=== PATIENT | male | born 1970 | race American Indian/Alaskan Native ===

== ENCOUNTER 2016-10-21 12:21 | Inpatient (IN) | payer OTHER ==
--- NOTE | 2016-10-21 13:00 | Emergency Department Report ---
Chief Complaint: Hyperglycemia Stated Complaint: JOHN/NAUSEA - HPI History of Present Illness: Patient with HTN, DM2 c/o trouble breathing, increased thirst, frequent urination. States ran out of diabetes meds (Long-acting insulin and metformin couple of weeks ago, fast-acting insulin yesterday). States home BG in the 500s. Patient also c/o twisting his left knee last night. States knee hurts with the slightest movement/transfer of pressure. - Exam Vital Signs: Vital Signs 10/21/16 12:37 Temperature 98.1 F Pulse Rate 95 H Respiratory 24 Rate Blood Pressure 114/72 O2 Sat by Pulse 95 Oximetry Physical Exam: General: Uncomfortable-appearing. NAD. MSE screening note: Focused history and physical exam performed. Due to findings the following was ordered: ED Medical Decision Making - Medical Decision Making Patient to see MD in main ED. ED Disposition for MSE Condition: Stable
[2016-10-21 13:38] LABS: Basophils % (Auto) 0.8 % (0.0-1.8); Eosinophils % (Auto) 0.1 % (0.0-4.3); Hematocrit 49.8 % (35.5-45.6); Hemoglobin 15.9 gm/dl (11.8-15.2); Mean Corpuscular HGB Conc 32 % (32-34); Mean Corpuscular Hemoglobin 28 pg (28-32); Mean Corpuscular Volume 86 fl (84-94); Platelet Count 198 K/mm3 (140-440); Red Blood Count 5.78 M/mm3 (3.65-5.03); Red Cell Distribution Width 14.4 % (13.2-15.2); White Blood Count 12.2 K/mm3 (4.5-11.0)
[2016-10-21 13:52] LABS: Anion Gap 37 mmol/L; BUN/Creatinine Ratio 10.76; Blood Urea Nitrogen 14 mg/dL (9-20); Calcium 9.2 mg/dL (8.4-10.2); Carbon Dioxide 11 mmol/L (22-30); Chloride 88.1 mmol/L (98-107); Potassium 5.2 mmol/L (3.6-5.0); Sodium 131 mmol/L (137-145)
[2016-10-21 13:56] LABS: Glucose 557 mg/dL (75-100)
[2016-10-21] MEDS ORDERED: D50W (25GM) IV PRN ×2 (14:01→20:21)
[2016-10-21] MEDS ORDERED: TORADOL IV ONE (14:01)
[2016-10-21] MEDS ORDERED: NACL 0.9% 1000 ML 1,000 ML IV ONE ×2 (14:01)
[2016-10-21] MEDS ORDERED: ZOFRAN IV ONE (14:01)
--- NOTE | 2016-10-21 14:07 | Emergency Department Report ---
- General Chief complaint: Hyperglycemia Stated complaint: JOHN/NAUSEA Time Seen by Provider: 10/21/16 13:53 Source: patient, old records reviewed (no pevious [facility] record) Mode of arrival: Ambulatory Limitations: No Limitations - History of Present Illness Initial comments: 46-year-old male with a past medical history of diabetes presents to the hospital with hyperglycemia and left knee pain. Patient states he ran out of his long-acting insulin and metformin several weeks ago and ran out of the short acting insulin yesterday. His sugar has been in the 400 to 500s for several weeks. He complains of shortness of breath, nausea, dry mouth, increased thirst, increased urination. Last night patient twisted his knee. Patient states pain is worse this a.m. and at the proximal tibia bilaterally and lower knee joint. Pain rated 8/10 in intensity, aching, worse with palpation and movement. Patient denies dysuria, fever, cough, or other infectious symptoms. - Related Data Allergies Allergy/AdvReac Type Severity Reaction Status Date / Time No Known Allergies Allergy Unverified 10/21/16 12:37 ED Review of Systems ROS: Stated complaint: JOHN/NAUSEA Other details as noted in HPI Comment: All other systems reviewed and negative Other: Constitutional: No fevers chills Eyes: No eye pain visual changes ENT: No ear pain or throat pain Neck: Denies pain Respiratory: Denies cough wheezing Cardiovascular: Denies chest pain, palpitations, syncope GI: Denies abdominal pain, vomiting, diarrhea. Positive nausea : As per HPI Musculoskeletal: Per HPI Skin: Denies rash, lesions, erythema Neurologic: Denies headache, numbness, weakness Psychiatric: Denies suicidal ideation, hallucinations ED Physical Exam - General Limitations: No Limitations - Other Other exam information: General: No limitations, patient is alert in no acute distress Head exam: Atraumatic, normocephalic Eyes exam: Normal appearance, pupils equal reactive to light, extraocular movements intact ENT: Dry mucous membrane, normal oropharynx Neck exam: Normal inspection, full range of motion, no meningismus nontender Respiratory exam: Clear to auscultation bilateral, no wheezes, rales, crackles Cardiovascular: Normal rate and rhythm, normal heart sounds Abdomen: Soft, nondistended, and nontender, with normal bowel sounds, no rebound, or guarding Extremity: Full range of motion normal inspection no deformity, mild tenderness to lower knee area without swelling, warmth, or erythema Back: Normal Inspection, full range of motion, no tenderness Neurologic: Alert, oriented x3, cranial nerves intact, no motor or sensory deficit Psychiatric: normal affect, normal mood Skin: Warm, dry, intact ED Course Vital Signs 10/21/16 10/21/16 12:37 14:11 Temperature 98.1 F Pulse Rate 95 H 89 Respiratory 24 19 Rate Blood Pressure 114/72 Blood Pressure 128/71 [Right] O2 Sat by Pulse 95 99 Oximetry - Reevaluation(s) Reevaluation #1: 10/21/16 14:06 Toradol, regular insulin bolus, normal saline and insulin drip ordered as well as DKA protocol ED Medical Decision Making - Lab Data Result diagrams: 10/21/16 13:12 10/21/16 13:12 Lab Results 10/21/16 10/21/16 10/21/16 Range/Units 12:41 13:12 13:12 WBC (4.5-11.0) K/mm3 RBC (3.65-5.03) M/mm3 Hgb (11.8-15.2) gm/dl Hct (35.5-45.6) % MCV (84-94) fl MCH (28-32) pg MCHC (32-34) % RDW (13.2-15.2) % Plt Count (140-440) K/mm3 Lymph % (Auto) (13.4-35.0) % [place] % (Auto) (0.0-7.3) % Eos % (Auto) (0.0-4.3) % Baso % (Auto) (0.0-1.8) % Lymph # (1.2-5.4) K/mm3 [place] # (0.0-0.8) K/mm3 Eos # (0.0-0.4) K/mm3 Baso # (0.0-0.1) K/mm3 Seg Neutrophils % (40.0-70.0) % Seg Neutrophils # (1.8-7.7) K/mm3 VBG pH 7.198 L* (7.320-7.420) Sodium 131 L (137-145) mmol/L Potassium 5.2 H (3.6-5.0) mmol/L Chloride 88.1 L (98-107) mmol/L Carbon Dioxide 11 L (22-30) mmol/L Anion Gap 37 mmol/L BUN 14 (9-20) mg/dL Creatinine 1.3 (0.8-1.5) mg/dL Estimated GFR 60 ml/min BUN/Creatinine Ratio 10.76 % Glucose 557 H* (75-100) mg/dL POC Glucose 477 H (70-105) Calcium 9.2 (8.4-10.2) mg/dL Phosphorus (2.5-4.5) mg/dL Magnesium (1.7-2.3) mg/dL Troponin T < 0.010 (0.00-0.029) ng/mL Ketones 78.3 H (0.2-2.8) mg/dL 10/21/16 10/21/16 Range/Units 13:12 13:12 WBC 12.2 H (4.5-11.0) K/mm3 RBC 5.78 H (3.65-5.03) M/mm3 Hgb 15.9 H (11.8-15.2) gm/dl Hct 49.8 H (35.5-45.6) % MCV 86 (84-94) fl MCH 28 (28-32) pg MCHC 32 (32-34) % RDW 14.4 (13.2-15.2) % Plt Count 198 (140-440) K/mm3 Lymph % (Auto) 11.2 L (13.4-35.0) % [place] % (Auto) 5.5 (0.0-7.3) % Eos % (Auto) 0.1 (0.0-4.3) % Baso % (Auto) 0.8 (0.0-1.8) % Lymph # 1.4 (1.2-5.4) K/mm3 Pine # 0.7 (0.0-0.8) K/mm3 Eos # 0.0 (0.0-0.4) K/mm3 Baso # 0.1 (0.0-0.1) K/mm3 Seg Neutrophils % 82.4 H (40.0-70.0) % Seg Neutrophils # 10.0 H (1.8-7.7) K/mm3 VBG pH (7.320-7.420) Sodium (137-145) mmol/L Potassium (3.6-5.0) mmol/L Chloride (98-107) mmol/L Carbon Dioxide (22-30) mmol/L Anion Gap mmol/L BUN (9-20) mg/dL Creatinine (0.8-1.5) mg/dL Estimated GFR ml/min BUN/Creatinine Ratio % Glucose (75-100) mg/dL POC Glucose (70-105) Calcium (8.4-10.2) mg/dL Phosphorus 4.3 (2.5-4.5) mg/dL Magnesium 2.0 (1.7-2.3) mg/dL Troponin T (0.00-0.029) ng/mL Ketones (0.2-2.8) mg/dL - EKG Data -: EKG Interpreted by Me (nsr rate 87 no stemi) - EKG Data When compared to previous EKG there are: previous EKG unavailable - Radiology Data Radiology results: image reviewed (left knee x-ray: No acute findings chest x- ray: No acute findings) - Medical Decision Making Patient be admitted to the hospital for DKA, insulin therapy, and hydration - Differential Diagnosis DKA, hyperglycemia, fracture, sprain Critical Care Time: No Critical care attestation.: If time is entered above; I have spent that time in minutes in the direct care of this critically ill patient, excluding procedure time. ED Disposition Clinical Impression: DKA (diabetic ketoacidoses) Qualifiers: Diabetes mellitus type: type 2 Diabetes mellitus complication detail: without coma Qualified Code(s): E13.10 - Other specified diabetes mellitus with ketoacidosis without coma Disposition: OP ADMITTED IP TO THIS HOSP Is pt being admited?: Yes Condition: Stable Time of Disposition: 14:08 (dr Jones/hosp)
--- NOTE | 2016-10-21 14:08 | XRay Report ---
LEFT KNEE, 3 views: History: Left knee pain. The bony architecture is intact without evidence of fracture or dislocation. No significant soft tissue abnormality is seen. IMPRESSION: Normal left knee.
--- NOTE | 2016-10-21 14:08 | XRay Report ---
CHEST 2 VIEWS INDICATION: Shortness of breath. COMPARISON: None similar. FINDINGS: PA and lateral chest radiographs, 3 images, demonstrate normal cardiomediastinal silhouette. Clear lungs. Demineralized bones with mild thoracic dextroscoliosis. CONCLUSION: No acute disease in the chest. Thank you for the opportunity to participate in this patient's care.
[2016-10-21 14:18] LABS: B-Hydroxybutyrate 78.3 mg/dL (0.2-2.8)
[2016-10-21 14:23] LABS: Phosphorous 4.3 mg/dL (2.5-4.5)
--- NOTE | 2016-10-21 14:33 | Admit Criteria Form ---
Admission Criteria Documentation: DIABETES Clinical Indications for Admission to Inpatient Care (Place 'X' for any and all applicable criteria): Admission is indicated by presence of ALL (if I & II) or ANY ONE (if III or IV) of the following (1)(2)(3)(4): [ X]I. Diabetes is uncontrolled as indicated by ANY ONE of the following: [X ]a) Diabetic ketoacidosis as indicated by ALL of the following (8): [X ]i) Hyperglycemia (eg, plasma glucose greater than 200 mg /dL (11.1 mmol/L)) [X ]ii) Acidosis (eg, arterial pH less than 7.30, serum bicarbonate level less than 15 mEq/L (mmol/L)) [ X]iii) Moderate ketonuria or ketonemia [ ]b) Hyperglycemic hyperosmolar state as indicated by ALL of the following(9)(10): [ ]i) Neurologic dysfunction (eg, stupor, coma, hemiparesis , seizure)(13) [ ]ii) Plasma glucose greater than 600 mg/dL (33.3 mmol/L) [ ]iii) Serum osmolality greater than 320 mOsm/kg (mmol/kg) [ ]c) Severe signs or symptoms secondary to hyperglycemia indicated by ANY ONE of the following: [ ]i) Altered mental status(10) [ ]ii) Significant hypovolemia or dehydration [ ]iii) Intractable nausea or vomiting [ ]iv) Unexplained fever or severe infection [ ]v) Severe electrolyte abnormality (eg, hypokalemia, hyperkalemia, hypernatremia) [ X]II. Management at other levels of care (Also use Diabetes: Observation Care as appropriate) is not feasible because of ANY ONE of the following: [X ]a) Condition was not adequately corrected with treatment at other levels of care. [ ]b) Treatment at other levels of care is not appropriate because of condition severity (eg, hyperosmolar coma). [ ]III. Contraindications and/or Inappropriate clinical situations for Observational Care in patients with Diabetes, when ANY ONE of the following is required: [ ]a) Patient require specific diagnostic workup or therapeutic intervention 22 [ ]b) Patient with abnormal vital signs or altered mental status 23 [ ]IV. General contraindications and/or Inappropriate clinical situations for Observational Care in patients with Diabetes, when ANY ONE of the following is required: [ ]a) Prediction of prolongation of LOS based on ANY ONE of the following may be considered as a contraindication for observational care 2, 3, 4, 5, 6, 7, 8, 9, 10, 11 [ ]i) Age > 65 yrs. [ ]ii) Patient arriving by ambulance [ ]iii) Patient with high acuity [ ]iv) Patient requiring vital sign monitoring [ ]v) Patient on IV medication [ ]b) Systolic blood pressures 180mmHg 3,12 [ ]c) Patient with altered mental status including delirium and other alteration of consciousness, (3) [ ]d) Patient whose discharge disposition will be to a care home home or rehabilitation home should not be managed in Emergency Department Observation Unit. CMS rule requires 3 days hospital stay before such placement.3,13 [ ]e) Patient with failure to thrive due to broad array of etiologies 3,16,17 [ ]f) Inability to ambulate 3,14 Extended stay beyond goal length of stay may be needed for(3)(20): [ ]a) Treatment of precipitating causes [ ]b) Development of hypoglycemia [ ]c) Complications of treatment [ ]d) Complications of decompensated diabetes (eg, acute gastric dilatation, persistent metabolic or neurologic derangement) [ ]e) Active Comorbidities [ ]f) Older patients( 65 years or older) The original [employer] content created by [employer] has been revised. The portions of the content which have been revised are identified through the use of italic text or in bold,and [facility] has neither reviewed nor approved the modified material. All other unmodified content is copyright [employer]. Please see references footnoted in the original [facility] edition 2016 Admission Criteria Met: Yes
[2016-10-21 14:52] LABS: Bilirubin,Urine NEG (Negative); Blood,Urine SM (Negative); Ketones,Urine 80 mg/dL (Negative); Leukocyte Esterase,Urine NEG (Negative); Mucus,Urine FEW /HPF; Nitrite,Urine NEG (Negative); Urobilinogen,Urine < 2.0 mg/dL (<2.0)
[2016-10-21] MEDS ORDERED: NovoLIN R 100 UNITS in NACL 0.9% 99 ML IV SCH ×2 (15:00→21:00)
[2016-10-21 16:28] LABS: BUN/Creatinine Ratio 13.33; Blood Urea Nitrogen 16 mg/dL (9-20); Calcium 8.3 mg/dL (8.4-10.2); Carbon Dioxide 12 mmol/L (22-30); Chloride 98.3 mmol/L (98-107); Glucose 499 mg/dL (75-100); Potassium 4.9 mmol/L (3.6-5.0); Sodium 131 mmol/L (137-145)
[2016-10-21 16:30] LABS: Anion Gap 26 mmol/L
[2016-10-21 19:21] LABS: BUN/Creatinine Ratio 12.72; Blood Urea Nitrogen 14 mg/dL (9-20); Calcium 8.4 mg/dL (8.4-10.2); Carbon Dioxide 13 mmol/L (22-30); Chloride 101.4 mmol/L (98-107); Glucose 372 mg/dL (75-100); Sodium 133 mmol/L (137-145)
[2016-10-21 19:25] LABS: Anion Gap 24 mmol/L
--- NOTE | 2016-10-21 20:21 | Event Note ---
Date: 10/21/16 DKA Non Compliance Reports
[2016-10-21 20:42] LABS: Anion Gap 24 mmol/L; BUN/Creatinine Ratio 11.81; Blood Urea Nitrogen 13 mg/dL (9-20); Calcium 8.5 mg/dL (8.4-10.2); Carbon Dioxide 13 mmol/L (22-30); Chloride 98.9 mmol/L (98-107); Glucose 282 mg/dL (75-100); Potassium 4.6 mmol/L (3.6-5.0); Sodium 131 mmol/L (137-145)
--- NOTE | 2016-10-21 21:55 | History and Physical Report ---
CHIEF COMPLAINT: Feeling weak and nauseous for 2 days. HISTORY OF PRESENT ILLNESS: A 46-year-old -[place] male with past medical history of diabetes and insulin-dependent, noncompliant because of economic issues. He ran out of his long-acting insulin and metformin several weeks ago and ran out of short-acting insulin this morning. His sugar has been in the 400-500 for several weeks. Complains of dry mouth, nausea, shortness of breath, and 1 episode of vomiting. No fever. No chills. No chest pain. No palpitations. PAST MEDICAL HISTORY: Significant for insulin-dependent diabetes. CURRENT MEDICATIONS: Insulin 70/30, 25 units twice a day, short-acting insulin 10 units before lunch. PAST SURGICAL HISTORY: None. SOCIAL HISTORY: He does not smoke. No alcohol, no recreational drugs. REVIEW OF SYSTEMS: GENERAL: Significant for feeling weak, tired, and fatigued. Constitutional symptoms, poor appetite and nausea present. EYES: No blurred vision. No diplopia. EARS, NOSE, AND THROAT: No ear pain. No ear discharge. No tinnitus. CARDIOVASCULAR: No chest pain, no palpitations. Slight shortness of breath present. RESPIRATORY: Slight shortness of breath present. No cough. No congestion. GASTROINTESTINAL: Nausea present. Vomited x 1. No abdominal pain. GENITOURINARY: No dysuria, no flank pain. No urinary urgency, no urinary frequency, no urinary hesitancy. Rectal symptoms, no discharge, no incontinence. MUSCULOSKELETAL: No neck stiffness. No low back pain. No muscle weakness. INTEGUMENTARY: No rash, no pruritus, no redness, no sores. NEUROLOGICAL: No altered sensorium. No seizures, no syncope. PSYCHIATRIC: No anxiety and no change in appetite. ENDOCRINE: Has polyphagia, increased blood sugars, change in appetite. HEMATOLOGIC AND LYMPHATIC: No easy bruising, no easy bleeding. ALLERGIC AND IMMUNOLOGIC: No urticaria, no allergic rhinitis, no wheezing. A 14-point review of systems was done. PHYSICAL EXAMINATION: GENERAL: Middle-aged male in no distress. VITAL SIGNS: Blood pressure is 114/72, temperature is 98.1, pulse is 95, respirations are 24, sats are 95%. HEENT: Dry mucous membranes, dry tongue. NECK: Supple, no lymphadenopathy, no thyromegaly. LUNGS: Clear to auscultation and percussion. Good air entry. CARDIOVASCULAR: S1, S2 heard. No gallop, no murmur, no rub. Apical impulse in left fifth intercostal space and midclavicular line. ABDOMEN: Soft and benign. No hepatosplenomegaly. No guarding, no rigidity. Hernial orifices are normal. EXTREMITIES: Good pedal pulses. CENTRAL NERVOUS SYSTEM: Alert and oriented x 4, nonfocal exam. LABORATORY DATA: Significant for blood glucose of 557, H and H of 15.9 and 49.8, white count of 12,200. Potassium of 5.2, sodium of 131, chloride of 88.1, bicarbonate of 11, BUN and creatinine of 14 and 1.3. Ketones are 78.3. Urine glucose is more than 500. Venous pH is 7.198. ASSESSMENT AND PLAN: Diabetic ketoacidosis, moderate to severe. The patient initiated on DKA protocol. The patient also counseled about insulin intake and the patient will be given some samples of insulin. The patient started on insulin 70/30, 20 units twice a day along with the DKA protocol, IV fluids in the form of normal saline for the time being, followed by IV normal saline at 125 mL per hour, followed by D5 normal saline once the glucose between 100 and 120. Also, regular BMP to be drawn. The patient to be counseled. Dietary consult requested. CRITICAL CARE STATEMENT: The high probability of a clinically significant sudden or life-threatening deterioration of the cardiorespiratory system required my full and direct attention, intervention, and personal management. The appropriate critical care time was 35 minutes. The time is in addition to time spent performing reported procedures, but includes the followin. Data review and interpretation. 2. Patient assessment and monitoring of vital signs. 3. Documentation, medication orders, and management. JOB# [id number] VSDeepa/NTS
[2016-10-21] MEDS: D5W/0.45% NACL/KCL 20 MEQ 1,000 ML IV SCH (23:00)
[2016-10-22 00:10] LABS: Anion Gap 20 mmol/L; BUN/Creatinine Ratio 12.22; Blood Urea Nitrogen 11 mg/dL (9-20); Calcium 8.8 mg/dL (8.4-10.2); Carbon Dioxide 16 mmol/L (22-30); Chloride 105.4 mmol/L (98-107); Glucose 171 mg/dL (75-100); Glucose 177 mg/dL (75-100); Potassium 4.1 mmol/L (3.6-5.0); Sodium 137 mmol/L (137-145)
[2016-10-22 00:11] LABS: Anion Gap 20 mmol/L; Phosphorous 2.5 mg/dL (2.5-4.5); Potassium 4.1 mmol/L (3.6-5.0); Sodium 136 mmol/L (137-145)
[2016-10-22 00:13] LABS: Anion Gap 20 mmol/L; BUN/Creatinine Ratio 12.22; Blood Urea Nitrogen 11 mg/dL (9-20); Calcium 8.8 mg/dL (8.4-10.2); Carbon Dioxide 16 mmol/L (22-30); Chloride 105.5 mmol/L (98-107); Glucose 176 mg/dL (75-100); Potassium 4.2 mmol/L (3.6-5.0); Sodium 137 mmol/L (137-145)
[2016-10-22] MEDS ORDERED: MORPHINE ONE (03:51)
[2016-10-22] MEDS ORDERED: TORADOL ONE (04:25)
[2016-10-22 05:39] LABS: BUN/Creatinine Ratio 8.88; Blood Urea Nitrogen 8 mg/dL (9-20); Calcium 8.6 mg/dL (8.4-10.2); Carbon Dioxide 19 mmol/L (22-30); Glucose 165 mg/dL (75-100)
[2016-10-22 05:40] LABS: Anion Gap 18 mmol/L; Chloride 104.4 mmol/L (98-107); Potassium 3.9 mmol/L (3.6-5.0); Sodium 137 mmol/L (137-145)
[2016-10-22] MEDS: D5W/0.45% NACL/KCL 20 MEQ 1,000 ML IV SCH (07:51)
[2016-10-22 08:03] LABS: Anion Gap 15 mmol/L; BUN/Creatinine Ratio 7.77; Blood Urea Nitrogen 7 mg/dL (9-20); Calcium 8.6 mg/dL (8.4-10.2); Carbon Dioxide 20 mmol/L (22-30); Chloride 106.9 mmol/L (98-107); Glucose 124 mg/dL (75-100); Potassium 3.8 mmol/L (3.6-5.0); Sodium 138 mmol/L (137-145)
[2016-10-22] MEDS ORDERED: LEVEMIR SUB-Q ONE (08:16)
[2016-10-22] MEDS ORDERED: D50W (25GM) IV PRN (08:16)
--- NOTE | 2016-10-22 08:24 | Progress Note ---
Assessment and Plan Assessment and plan: 1. Uncontrolled Dm, DKA Continue insulin drip, will give subcutaneous insulin and try to transition off the drip, consistent carbohydrate diets 2. Hypertension Start low-dose BAN inhibitor Critical care time spent 35 minutes History Interval history: Denies nausea, denies polyuria, denies polydipsia, feels well Hospitalist Physical - Physical exam Narrative exam: General: Patient appears well in no distress HEENT: MMM, EOMI cardiac: S1-S2 heard lungs: clear to auscultation, abdomen: soft, nontender, nondistended bowel sounds positive extremities: no edema clubbing or cyanosis Skin: no rash or lesion Neuro: no focal deficit Psych: appropriate behavior and mood, cognition intact - Constitutional Vitals: Temp Pulse Resp BP Pulse Ox 98.1 F 76 16 139/91 91 10/22/16 07:18 10/22/16 07:00 10/22/16 07:00 10/22/16 07:00 10/22/16 07:00 Results - Labs CBC & Chem 7: 10/21/16 13:12 10/22/16 07:19 Labs: Laboratory Last Values WBC 12.2 K/mm3 (4.5-11.0) H 10/21/16 13:12 RBC 5.78 M/mm3 (3.65-5.03) H 10/21/16 13:12 Hgb 15.9 gm/dl (11.8-15.2) H 10/21/16 13:12 Hct 49.8 % (35.5-45.6) H 10/21/16 13:12 MCV 86 fl (84-94) 10/21/16 13:12 MCH 28 pg (28-32) 10/21/16 13:12 MCHC 32 % (32-34) 10/21/16 13:12 RDW 14.4 % (13.2-15.2) 10/21/16 13:12 Plt Count 198 K/mm3 (140-440) 10/21/16 13:12 Lymph % (Auto) 11.2 % (13.4-35.0) L 10/21/16 13:12 [place] % (Auto) 5.5 % (0.0-7.3) 10/21/16 13:12 Eos % (Auto) 0.1 % (0.0-4.3) 10/21/16 13:12 Baso % (Auto) 0.8 % (0.0-1.8) 10/21/16 13:12 Lymph # 1.4 K/mm3 (1.2-5.4) 10/21/16 13:12 [place] # 0.7 K/mm3 (0.0-0.8) 10/21/16 13:12 Eos # 0.0 K/mm3 (0.0-0.4) 10/21/16 13:12 Baso # 0.1 K/mm3 (0.0-0.1) 10/21/16 13:12 Seg Neutrophils % 82.4 % (40.0-70.0) H 10/21/16 13:12 Seg Neutrophils # 10.0 K/mm3 (1.8-7.7) H 10/21/16 13:12 VBG pH 7.198 (7.320-7.420) L* 10/21/16 13:12 Sodium 138 mmol/L (137-145) 10/22/16 07:19 Potassium 3.8 mmol/L (3.6-5.0) 10/22/16 07:19 Chloride 106.9 mmol/L (98-107) 10/22/16 07:19 Carbon Dioxide 20 mmol/L (22-30) L 10/22/16 07:19 Anion Gap 15 mmol/L 10/22/16 07:19 BUN 7 mg/dL (9-20) L 10/22/16 07:19 Creatinine 0.9 mg/dL (0.8-1.5) 10/22/16 07:19 Estimated GFR > 60 ml/min 10/22/16 07:19 BUN/Creatinine Ratio 7.77 % 10/22/16 07:19 Glucose 124 mg/dL (75-100) H 10/22/16 07:19 POC Glucose 145 (70-105) H 10/22/16 08:18 Hemoglobin A1c 13.3 % (4-6) H 10/21/16 23:25 Calcium 8.6 mg/dL (8.4-10.2) 10/22/16 07:19 Phosphorus 2.5 mg/dL (2.5-4.5) D 10/21/16 23:25 Magnesium 2.0 mg/dL (1.7-2.3) 10/21/16 23:25 Troponin T < 0.010 ng/mL (0.00-0.029) 10/21/16 13:12 Urine Color Straw (Yellow) 10/21/16 14:35 Urine Turbidity Clear (Clear) 10/21/16 14:35 Urine pH 5.0 (5.0-7.0) 10/21/16 14:35 Ur Specific [place] 1.025 (1.003-1.030) 10/21/16 14:35 Urine Protein 30 mg/dl mg/dL (Negative) 10/21/16 14:35 Urine Glucose (UA) >=500 mg/dL (Negative) 10/21/16 14:35 Urine Ketones 80 mg/dL (Negative) 10/21/16 14:35 Urine Blood Sm (Negative) 10/21/16 14:35 Urine Nitrite Neg (Negative) 10/21/16 14:35 Urine Bilirubin Neg (Negative) 10/21/16 14:35 Urine Urobilinogen < 2.0 mg/dL (<2.0) 10/21/16 14:35 Ur Leukocyte Esterase Neg (Negative) 10/21/16 14:35 Urine WBC (Auto) 1.0 /HPF (0.0-6.0) 10/21/16 14:35 Urine RBC (Auto) 4.0 /HPF (0.0-6.0) 10/21/16 14:35 U Epithel Cells (Auto) < 1.0 /HPF (0-13.0) 10/21/16 14:35 Hyaline Casts 1 /LPF 10/21/16 14:35 Urine Mucus Few /HPF 10/21/16 14:35 Ketones 6.3 mg/dL (0.2-2.8) H 10/22/16 04:17
[2016-10-22 11:00] LABS: Anion Gap 16 mmol/L; BUN/Creatinine Ratio 7.77; Blood Urea Nitrogen 7 mg/dL (9-20); Calcium 8.4 mg/dL (8.4-10.2); Carbon Dioxide 20 mmol/L (22-30); Chloride 105.7 mmol/L (98-107); Glucose 301 mg/dL (75-100); Potassium 4.1 mmol/L (3.6-5.0); Sodium 138 mmol/L (137-145)
--- NOTE | 2016-10-22 11:56 | Event Note ---
Date: 10/22/16 Asked to see for ICU admission re: DKA and uncontrolled HTN doing better and transferred to floor ....will see prn
[2016-10-22] MEDS: NOVOLOG SUB-Q SCH ×5 (14:21→22:45)
[2016-10-22] MEDS: ZESTRIL PO SCH (14:43)
[2016-10-22] MEDS: LOVENOX SUB-Q SCH (14:44)
[2016-10-22] MEDS: GLUCOPHAGE PO SCH (17:54)
[2016-10-22 21:16] LABS: Blood Urea Nitrogen 8 mg/dL (9-20); Calcium 8.5 mg/dL (8.4-10.2); Carbon Dioxide 20 mmol/L (22-30); Chloride 106.1 mmol/L (98-107); Glucose 102 mg/dL (75-100); Potassium 4.3 mmol/L (3.6-5.0); Sodium 140 mmol/L (137-145)
[2016-10-22 21:38] LABS: Anion Gap 18 mmol/L
[2016-10-22] MEDS ORDERED: LEVEMIR SUB-Q SCH (22:00)
[2016-10-23] MEDS: NOVOLOG SUB-Q SCH ×6 (08:00→17:00)
[2016-10-23] MEDS: GLUCOPHAGE PO SCH ×2 (08:51→17:00)
[2016-10-23] MEDS: ZESTRIL PO SCH (09:56)
[2016-10-23] MEDS: LOVENOX SUB-Q SCH (09:56)
[2016-10-23] MEDS ORDERED: PERCOCET 5/325 PO PRN (11:54)
--- NOTE | 2016-10-23 16:29 | Discharge Summary ---
Providers - Providers Date of Admission: 10/21/16 14:08 Attending physician: UBALDO WHITE MD 10/21/16 18:29 Consult to Physician [CONS] Urgent Consulting Provider: GELY CHINCHILLA Reason For Exam: ICU admission Place consult to:: Dr Avalos Notified:: no Primary care physician: CASING CREW PUSHER Hospitalization Condition: Stable Hospital course: 46m who self stopped insulin due to lack of insurance who presented with DKA, he was initially put in ICU and rx with insulin drip and IVF, he improved and was transitioned to Subq insulin, he was counseled on improved compliance with diet and medications and given resources for discounted medications. For stage 1 -2 HTn, he was started on low dose BAN inhibitor Dc Diagnosis 1. Uncontrolled Dm, DKA 2. Hypertension \ Disposition: DISCHARGED TO HOME OR SELFCARE Time spent for discharge: 35 minutes Core Measure Documentation - Palliative Care Palliative Care/ Comfort Measures: Not Applicable - Core Measures Any of the following diagnoses?: none Exam - Constitutional Vitals: Temp Pulse Resp BP Pulse Ox 99.3 F 76 16 130/80 98 10/23/16 08:00 10/23/16 09:56 10/23/16 08:00 10/23/16 09:56 10/23/16 08:00 General appearance: Present: no acute distress, well-nourished - EENT Eyes: Present: PERRL ENT: hearing intact, clear oral mucosa - Neck Neck: Present: supple, normal ROM - Respiratory Respiratory effort: normal Respiratory: bilateral: CTA - Cardiovascular Heart Sounds: Present: S1 & S2. Absent: rub, click - Extremities Extremities: pulses symmetrical, No edema Peripheral Pulses: within normal limits - Abdominal General gastrointestinal: Present: soft, non-tender, non-distended, normal bowel sounds Male genitourinary: Present: normal - Integumentary Integumentary: Present: clear, warm, dry - Musculoskeletal Musculoskeletal: gait normal, strength equal bilaterally - Psychiatric Psychiatric: appropriate mood/affect, intact judgment & insight - Neurologic Neurologic: CNII-XII intact, moves all extremities Plan Follow up with: PRIMARY CARE, [Primary Care Provider] - 7 Days Prescriptions: Insulin Detemir [Levemir] 30 units SUB-Q QHS #1000 units metFORMIN [Glucophage] 1,000 mg PO BIDDIAB #90 tablet Insulin Lispro [HumaLOG VIAL] 10 units SQ AC #1 vial oxyCODONE /ACETAMINOPHEN [Percocet 5/325 mg] 1 tab PO Q6H PRN #20 tablet PRN Reason: Pain, Moderate (4-6) Lisinopril [Zestril TAB] 5 mg PO QDAY #30 tablet
[2016-10-23 17:00] VITALS: BP 122/74
[2016-10-23] MEDS ORDERED: LEVEMIR SUB-Q SCH (22:00)
== END 2016-10-23 19:00 | disposition home or self-care (01) | DRG 639 ==
LOC: ED 12:21 → CC1 14:08 → 3A 10-22 08:54
PROVIDERS: ADMIT Internal Medicine; ATTEND Internal Medicine
DX: E13.10 Other specified diabetes mellitus with ketoacidosis without coma (principal); I10 Essential (primary) hypertension; Z79.4 Long term (current) use of insulin; Z91.19 Patient's noncompliance with other medical treatment and regimen
CPT/HCPCS: 36415; 71020; 80048; 81001; 82010; 82805; 82962; 83036; 83735; 84100; 84484; 85025; 93005; 93010; 96361; 96365; 96372; 96375; 96376; J1650; J1815; J1818; J1885; J2270; J2405; J7030